=== PATIENT | male | born 1980 | race African-American/Black ===

== ENCOUNTER 2022-06-16 06:29 | Emergency (ER) | payer MEDICAID ==
[~2022-06-16] VITALS: Ht 172.7 cm; Wt 82.0 kg
[2022-06-16 06:35] VITALS: BP 147/98
[2022-06-16] MEDS ORDERED: ONDANSETRON HCL 4MG/2ML INJ IV STA (06:46)
[2022-06-16] MEDS ORDERED: FAMOTIDINE 20MG/2ML VIAL IV STA (06:46)
[2022-06-16] MEDS ORDERED: SODIUM CHLORIDE 0.9% 1,000 ML IV ONE (07:00)
[2022-06-16 07:57] LABS: BASOPHILS % 0.3 % (0.0-2.0); EOSINOPHILS % 0.1 % (0.0-5.0); HEMATOCRIT. 53.7 % (42.0-52.0); HEMOGLOBIN. 18.9 g/dL (14.0-18.0); LYMPHOCYTES % 12.2 % (20.0-50.0); MEAN CORPUSCULAR HEMOGLOBIN 30.2 pg (28.0-32.0); MEAN CORPUSCULAR VOLUME 85.8 fL (80.0-94.0); MEAN PLATELET VOLUME 8.9 fl (7.4-10.4); MONOCYTES % 6.6 % (2.0-8.0); NEUTROPHILS % 80.8 % (40.0-76.0); PLATELET 277 x1000/uL (130-400); RED BLOOD CELL COUNT 6.25 mill/uL (4.7-6.1); RED CELL DISTRIBUTION WIDTH 12.8 % (11.6-14.6)
[2022-06-16 08:07] LABS: INR 1.2; PROTHROMBIN TIME 12.3 sec (9.6-11.0)
[2022-06-16 08:09] LABS: CHLORIDE 101 mEq/L (98-107)
[2022-06-16] MEDS ORDERED: ONDANSETRON HCL 4MG/2ML INJ IV NR (08:30)
[2022-06-16] MEDS: FAMOTIDINE 20MG/2ML VIAL IV NR ×2 (08:49→09:47)
[2022-06-16] MEDS ORDERED: MAGNESIUM/ALUMINUM HYDROXIDE/SIMETHICONE 30ML UDC PO STA (09:05)
[2022-06-16] MEDS ORDERED: DICYCLOMINE 10 MG/5 ML ORAL SYR PO STA (09:05)
[2022-06-16] MEDS ORDERED: VISCOUS LIDOCAINE 2% 15 ML UDC PO STA (09:05)
[2022-06-16] MEDS ORDERED: OMEP20TA23 PO (10:44)
[2022-06-16] MEDS ORDERED: ONDA4TAB50 PO (10:44)
== END 2022-06-16 11:34 | disposition home or self-care (01) ==
LOC: ER 06:29
DX: R10.13 Epigastric pain (principal); R11.2 Nausea with vomiting, unspecified; I10 Essential (primary) hypertension
CPT/HCPCS: 36415; 71045; 74176; 80053; 83690; 85025; 85610; 96361; 96374; 96375; 99285; J2405; J3490; J7030